=== PATIENT | female | born 2000 | race Caucasian/White ===

== ENCOUNTER 2025-04-05 10:12 | Emergency (ER) | payer OTHER, SELFPAY ==
[2025-04-05 10:19] VITALS: BP 126/84; PULSE 92; RESP 18; TEMP 36.6
[2025-04-05 10:37] LABS: BEDSIDEPREGUCG Negative (Negative)
[2025-04-05 10:38] LABS: Add Urine Microscopic? NO; Appearance Urine Clear (Clear); Glucose Urine UA Negative (Negative); Leukocyte Esterase Ur Negative LEU/UL (Negative); Nitrate Urine Negative (Negative); Specific Grav Ur 1.033 (1.001-1.035)
--- OUTSIDE RECORDS SUMMARY | 2025-04-05 10:57 | XMS_ITS | Clinical Summary ---
Author Organization [facility] Address [address] [place] [id number] Care Team Providers Care Tunnel Elastic Operator Zigzag Name Role Phone No, Physician Primary Care Provider [phone] Allergies Active Allergy Reactions Criticality Noted Date Comments Amoxicillin Unknown 02/01/2025 Penicillins Unknown 02/01/2025 Medications No known medications Active Problems Problem Noted Date Diagnosed Date Anemia 02/01/2025 Seizure 02/01/2025 Encounters Date Type Department Care Team Description 02/02/2025 Documentation [facility] Social Work [address] [place] [id number] Nicole Roque 02/01/2025 2:31 PM CDT - 02/01/2025 6:42 PM CDT Emergency [address] [address] Nicholas Andrews MD Seizure (HCC) (Primary Dx); Anemia, unspecified type Discharge Disposition: Discharge to home or self care from Last 3 Months Surgical History Surgery Date Site/Laterality Comments APPENDECTOMY Medical History Medical History Date Comments Seizures (HCC) Bipolar disorder (HCC) Social History Tobacco Use Types Packs/Day Years Used Date Smoking Tobacco: Never Passive Smoke Exposure: Never Tobacco Cessation:Counseling Given: Not Answered Alcohol Use Standard Drinks/Week Comments Not Currently 0 (1 standard drink = 0.6 oz pur e alcohol) Personal Safety Answer Date Recorded Have you ever been in or are you currently in a harmful physical or emotional relationship or is someone making you feel afraid or unsafe? Denies 02/01/2025 Comments No Sex and Gender Information Value Date Recorded Sex Assigned at Not on file Legal Sex Female 2:31 PM CDT Gender Identity Female 02/01/2025 2:44 PM CDT Sexual Orientation Not on file Obstetrics History Last Filed Vital Signs Vital Sign Reading Time Taken Comments Blood Pressure 108/73 02/01/2025 6:00 PM CDT Pulse 74 02/01/2025 6:00 PM CDT Temperature 36.9 C (98.4 F) 02/01/2025 2:32 PM CDT Respiratory Rate 16 02/01/2025 6:00 PM CDT Oxygen Saturation 100% 02/01/2025 6:00 PM CDT Inhaled Oxygen Concentration - - Weight 68 kg (150 lb) 02/01/2025 2:32 PM CDT Height 175.3 cm (5' 9) 02/01/2025 2:32 PM CDT Body Mass Index 22.15 02/01/2025 2:32 PM CDT Plan of Treatment Health Maintenance Due Date Last Done Comments Cervical Cancer Screening 2002 Depression Screening 2002 Hepatitis C Screening 2002 HPV Vaccines (1 - 3-dose series) 2017 Regular Well Visit/Exam 18-64 2020 Influenza Vaccine (#1) 2025 DTaP/Tdap/Td Vaccine (7 - Td or Tdap) 01/29/2031 01/29/2021, 04/25/2008, 02/12/2004, Additional history exists Hepatitis B Screening Completed 08/03/2003 , 05/01/2003, 2002 Pneumococcal vaccine <65 Aged Out 003, 06/01/2003, 05/01/2003 No longer eligible based on patient's age to complete this topic Varicella Vaccines Completed 01/29/2021, 01/15/2004 Meningococcal B Vaccine Completed 03/14/2021, 01/29 Procedures Procedure Name Priority Date/Time Associated Diagnosis Comments LAMOTRIGINE LEVEL STAT 02/01/2025 2:4 6 PM CDT LEVETIRACETAM LEVEL STAT 02/01/2025 2 :46 PM CDT EGFR STAT 02/01/2025 2:42 PM CDT DIFFERENTIAL AUTO STAT 02/01/2025 2:4 2 PM CDT HCG, BLOOD, QUANTITATIVE STAT 02/01/2025 2:42 PM CDT PHOSPHORUS STAT 02/01/2025 2:42 PM CDT MAGNESIUM STAT 02/01/2025 2:42 PM CDT ETHANOL STAT 02/01/2025 2:42 PM CDT COMPREHENSIVE METABOLIC PANEL STAT 02/01/2025 2:42 PM CDT CBC WITH AUTO DIFFERENTIAL STAT 02/01/2025 2:42 PM CDT ECG 12-LEAD STAT 02/01/2025 2:36 PM CDT from Last 3 Months Results * Levetiracetam level (02/01/2025 2:46 PM CDT) Pathologist [facility] Levetiracetam (Keppra) 18.3 10.0 - 40.0 mcg/mL [facility] ref Lab Comment: ADDITIONAL INFORMATION This test was developed and its performance characteristics determined by [facility] in a manner consistent with CLIA requirements. This test has not been cleared or approved by the U.S. Food and Drug Administration. Test Performed by: [facility] - [facility] [address] [place] [address] System Support Analyst: Demi Lambert Ph.D.; CLIA# [id number] Blood 02/01/2025 2:46 PM CDT 02/01/2025 2:52 PM CDT us Nicholas Andrews MD LAB BLOOD ORDERABLES Final Result [facility] [address] [facility] Department [place] [address] [facility] ref [facility] * (ABNORMAL) Lamotrigine level (02/01/2025 2:46 PM CDT) Pathologist [facility] Lamotrigine 1.8(L) 3.0 - 15.0 mcg/mL [facility] Comment: ADDITIONAL INFORMATION This test was developed and its performance characteristics determined by [facility] in a manner consistent with CLIA requirements. This test has not been cleared or approved by the U.S. Food and Drug Administration. Test Performed by: [facility] [address] [place] [address] System Support Analyst: Demi Lambert Ph.D.; CLIA# [id number] Blood 02/01/2025 2:46 PM CDT 02/01/2025 2:52 PM CDT us Nicholas Andrews MD LAB BLOOD ORDERABLES Final Result [address] Department [place] [address] [facility] ref [facility] * eGFR (02/01/2025 2:42 PM CDT) eGFR >90 >=60 mL/min/1. 73 m2 Comment: Interpretive Data Reference Interval Normal >/= 90 mL/min/1.73m2 Mildly decreased* 60 - 89 mL/min/1.73m2 Mildly to moderately decreased 45 - 59 mL/min/1.73m2 Moderately to severely decreased 30 - 44 mL/min/1.73m2 Severely decreased 15 - 29 mL/min/1.73m2 Kidney Failure < 15 mL/min/1.73m2 *Relative to young adult level Estimated glomerular filtration rate is determined by the 2020 CKD-EPI equation recommended by the National Kidney Foundation (A Unifying Approach to GFR Estimation: Recommendations of the NKF-ASK Task Force on Reassessing the Inclusion of Race in Diagnosing Kidney Disease, JASN 2020). The CKD-EPI equation should not be used for patients with unstable renal function and has not been validated in children and those over 70. Current interpretive data was last reviewed 2021. Blood 02/01/2025 2:42 PM CDT 02/01/2025 2:49 PM CDT us Nicholas Andrews MD LAB BLOOD ORDERABLES Final Result [facility] [address] [facility] Department [place] [address] * (ABNORMAL) Differential, auto (02/01/2025 2:42 PM CDT) Pathologist [facility] Neutrophil abs 5.41 1.50 - 6.50 K/cumm Imm gran abs 0.02 0.00 - 0.10 K/cumm [facility] Lymphocyte abs 0.77(L) 0.80 - 3.30 K/cumm [facility] Monocyte abs 0.55 0.20 - 0.80 K/cumm [facility] Eosinophil abs 0.03 0.00 - 0.50 K/cumm [facility] Basophil abs 0.02 0.00 - 0.10 K/cumm [facility] Neutrophil pct 79.6 % [facility] Comment: Interpretive Data Percent cell count reference ranges are not reported, since discordance with absolute values may lead to misinterpretation of CBC data. Current Interpretive Data was last revised on 2017. Imm gran pct 0.3 % [facility] Comment: Interpretive Data Percent cell count reference ranges are not reported, since discordance with absolute values may lead to misinterpretation of CBC data. Current Interpretive Data was last revised on 2017. Lymphocyte pct 11.3 % [facility] Comment: Interpretive Data Percent cell count reference ranges are not reported, since discordance with absolute values may lead to misinterpretation of CBC data. Current Interpretive Data was last revised on 2017. Monocyte pct 8.1 % [facility] Comment: Interpretive Data Percent cell count reference ranges are not reported, since discordance with absolute values may lead to misinterpretation of CBC data. Current Interpretive Data was last revised on 2017. Eosinophil pct 0.4 % [facility] Comment: Interpretive Data Percent cell count reference ranges are not reported, since discordance with absolute values may lead to misinterpretation of CBC data. Current Interpretive Data was last revised on 2017. Basophil pct 0.3 % [facility] Comment: Interpretive Data Percent cell count reference ranges are not reported, since discordance with absolute values may lead to misinterpretation of CBC data. Current Interpretive Data was last revised on 2017. Blood 02/01/2025 2:42 PM CDT 02/01/2025 2:49 PM CDT Nicholas Andrews MD LAB BLOOD ORDERABLES Final Result Performing Organization Address City/[facility]/ZIP Co de Phone Number [facility] [address] [employer] [place] [address] * (ABNORMAL) CBC with auto differential (02/01/2025 2:42 PM CDT) [facility] WBC 6.80 3.80 - 9.90 K/cumm Hgb 9.1(L) 11.9 - 15.5 g/dL [facility] Hct 28.9(L) 35.6 - 45.5 % [facility] Plt 167 150 - 400 K/cumm [facility] MPV 9.9 9.1 - 12.3 fL [facility] RBC 3.30(L) 3.90 - 5.20 M/cumm [facility] MCV 87.6 81.3 - 96.4 fL [facility] MCH 27.6 27.1 - 33.3 pg [facility] MCHC 31.5(L) 32.3 - 35.7 g/dL [facility] RDW CV 13.6 11.1 - 14.9 % [facility] RDW SD 43.8 35.7 - 48.1 fL [facility] NRBC abs 0.00 0.00 - 0.01 K/cumm [facility] Blood 02/01/2025 2:42 PM CDT 02/01/2025 2:49 PM CDT Nicholas Andrews MD LAB BLOOD ORDERABLES Final Result Performing Organization Address City/[facility]/ZIP Co de Phone Number [facility] [address] [place] [address] * hCG, blood, quantitative (02/01/2025 2:42 PM CDT) [facility] hCG, quant <5.0 0.0 - 5.0 IUnits/L Comment: Interpretive Data Male: < 5 IU/L Non- premenopausal Female: <5 IU/L [employer] hCG Beta Quant assay procedure was used. Results from different manufacturers or methods may not be comparable. Serial testing should be performed using the same method. Interpretive Data was last revised on 2023 Blood 02/01/2025 2:42 PM CDT 02/01/2025 2:49 PM CDT Nicholas Andrews MD LAB BLOOD ORDERABLES Final Result Performing Organization Address [facility] Co de Phone Number [address] [place] [address] * Phosphorus (02/01/2025 2:42 PM CDT) [facility] Phosphorus, pl 2.3 2.3 - 4.5 mg/dL Blood 02/01/2025 2:42 PM CDT 02/01/2025 2:49 PM CDT Nicholas Andrews MD LAB BLOOD ORDERABLES Final Result Performing Organization Address [facility] de Phone Number [address] [place] [address] * Magnesium (02/01/2025 2:42 PM CDT) [facility] Magnesium 1.9 1.4 - 2.5 mg/dL Blood 02/01/2025 2:42 PM CDT 02/01/2025 2:49 PM CDT Nicholas Andrews MD LAB BLOOD ORDERABLES Final Result Performing Organization Address [facility] de Phone Number [address] [place] [address] * Ethanol (02/01/2025 2:42 PM CDT) Ethanol <10 <=10 mg/dL Comment: Interpretive Data Legal limit of intoxication > or = 80 mg/dL Levels > or = 400 mg/dL are potentially TOXIC. Current interpretive data was last revised on 2018. Blood 02/01/2025 2:42 PM CDT 02/01/2025 2:49 PM CDT Nicholas Andrews MD LAB BLOOD ORDERABLES Final Result [facility] [address] [facility] Department [place] [address] * Comprehensive metabolic panel (02/01/2025 2:42 PM CDT) Sodium 140 135 - 145 mmol/L Potassium, pl 4.4 3.3 - 4.9 mmol/L [facility] Comment:Hemolyzed; Potassium value may be falsely elevated by as much as 1.0 mmol/L. Suggest redraw and reanalysis. Chloride 106 97 - 110 mmol/L [facility] CO2 22 22 - 32 mmol/L [facility] Anion gap 12 2 - 15 mmol/L [facility] BUN 15 6 - 25 mg/dL [facility] Creatinine 0.73 0.60 - 1.10 mg/dL [facility] Glucose 97 70 - 199 mg/dL [facility] Comment: Interpretive Data Fasting glucose >/= 126 mg/dl is diagnostic for diabetes. Fasting is defined as no caloric intake for at least 8 hours. Fasting glucose between 100 mg/dl to 125 mg/dl is diagnostic of prediabetes. In a patient with classic symptoms of hyperglycemia or hyperglycemic crisis, a random glucose >/= 200 mg/dl is diagnostic for diabetes. In the absence of unequivocal hyperglycemia, results should be confirmed by repeat testing. The classification and Diagnosis of Diabetes Diabetes Care 2022; 46: S19-S40. Current interpretive data was last revised 2022. Calcium 8.8 8.5 - 10.3 mg/dL [facility] Bilirubin, total <0.2 0.1 - 1.2 mg/dL [facility] Protein, pl 6.5 6.5 - 8.5 g/dL [facility] Albumin 4.0 3.5 - 5.0 g/dL [facility] Alk phos 54 40 - 130 Units/L [facility] ALT 17 7 - 45 Units/L [facility] AST 25 10 - 45 Units/L [facility] Blood 02/01/2025 2:42 PM CDT 02/01/2025 2:49 PM CDT Nicholas Andrews MD LAB BLOOD ORDERABLES Final Result [facility] [address] [facility] Department [place] [address] * ECG 12 lead (02/01/2025 2:36 PM CDT) Pathologist [facility] Ventricular Rate EKG/Min 84 BPM [facility] Atrial Rate 84 BPM [facility] CA-Interval (MSEC) 124 ms [facility] QRS-Interval (MSEC) 90 ms [facility] QT-Interval (MSEC) 376 ms [facility] QTc 444 ms [facility] P [place] 42 degrees [facility] R [place] 82 degrees [facility] T [place] 52 degrees [facility] Diagnosis Normal sinus rhythm RSR' or QR pattern in V1 suggests right ventricular conduction delay No previous ECGs available Confirmed by SULTAN ALCANTARA M.D. ([id number]) on 02/01/2025 10:24:45 PM [facility] 02/01/2025 2:36 PM CDT 02/01/2025 10:24 PM CDT us Nicholas Andrews MD ECG ORDERABLES Final Resu lt [facility] from Last 3 Months Insurance [employer] [facility] Care Teams Tunnel Elastic Operator Zigzag Relationship Specialty Start Date End Date No, Physician PCP - General 02/01/25
--- OUTSIDE RECORDS SUMMARY | 2025-04-05 10:57 | XMS_ITS | Referral Summary ---
Author Organization [facility] Address [address] [place] [address] Care Team Providers Care Nut Sorter Operator Name Role Phone No, Physician Primary Care Provider [phone] Encounters Date Type Department Care Team Description 02/02/[address] [facility] Social Work [address] [place] [id number] Nicole Roque 02/01/2025 2:31 PM CDT - 02/01/2025 6:42 PM CDT Emergency [address] [address] Nicholas Andrews MD Seizure (HCC) (Primary Dx); Anemia, unspecified type Discharge Disposition: Discharge to home or self care from Last 3 Months Allergies Active Allergy Reactions Criticality Noted Date Comments Amoxicillin Unknown 02/01/2025 Penicillins Unknown 02/01/2025 Medications No known medications Active Problems Problem Noted Date Diagnosed Date Anemia 02/01/2025 Seizure 02/01/2025 Social History Tobacco Use Types Packs/Day Years [...] PM CDT Sexual Orientation Not on file Last Filed Vital Signs Vital Sign Reading [...] 02/01/2025 2:32 PM CDT Plan of Treatment Not on file Procedures Procedure Name Priority Date/Time Associated Diagnosis [...] * Levetiracetam level (02/01/2025 2:46 PM CDT) Levetiracetam (Keppra) 18.3 10.0 - 40.0 mcg/mL [facility] Comment: ADDITIONAL INFORMATION This test was developed and its performance characteristics determined by [facility] in a manner consistent with CLIA requirements. This test has not been cleared or approved by the U.S. Food and Drug Administration. Test Performed by: [facility] [place] [address] Cut Out Stitcher: Demi Lambert Ph.D.; CLIA# [id number] Blood 02/01/2025 2:46 PM CDT 02/01/2025 2:52 PM CDT Nicholas Andrews MD LAB BLOOD ORDERABLES Final Result Performing Organization Address [facility] de Phone Number [address] [place] [address] [facility] * (ABNORMAL) Lamotrigine level (02/01/2025 2:46 PM CDT) Lamotrigine 1.8(L) 3.0 - 15.0 mcg/mL [facility] Comment: ADDITIONAL INFORMATION This test was developed and its performance characteristics determined by [facility] in a manner consistent with CLIA requirements. This test has not been cleared or approved by the U.S. Food and Drug Administration. Test Performed by: [facility] - [address] [address] Cut Out Stitcher: Demi Lambert Ph.D.; CLIA# [id number] Blood 02/01/2025 2:46 PM CDT 02/01/2025 2:52 PM CDT Nicholas Andrews MD LAB BLOOD ORDERABLES Final Result Performing Organization Address [facility] de Phone Number [address]IR[address] [place] [address] [facility] * eGFR (02/01/2025 2:42 PM CDT) [facility] eGFR >90 >=60 mL/min/1. 73 m2 Comment: [...] Andrews MD LAB BLOOD ORDERABLES Final Result [facility] [address] [facility] Department [place] [address] * (ABNORMAL) Differential, auto (02/01/2025 2:42 PM CDT) [facility] Neutrophil abs 5.41 1.50 - 6.50 K/cumm Imm gran abs 0.02 0.00 - 0.10 K/cumm [facility] Lymphocyte abs 0.77(L) 0.80 - 3.30 K/cumm [facility] Monocyte abs 0.55 0.20 - 0.80 K/cumm [facility] Eosinophil abs 0.03 0.00 - 0.50 K/cumm [facility] Basophil abs 0.02 0.00 - 0.10 K/cumm [facility] Neutrophil pct 79.6 % [facility] Comment: Interpretive Data Percent cell count reference ranges are not reported, since discordance with absolute values may lead to misinterpretation of CBC data. Current Interpretive Data was last revised on 2017. Imm gran pct 0.3 % [facility] Comment: Interpretive Data Percent cell count reference ranges are not reported, since discordance with absolute values may lead to misinterpretation of CBC data. Current Interpretive Data was last revised on 2017. Lymphocyte pct 11.3 % [facility] Comment: Interpretive Data Percent cell count reference ranges are not reported, since discordance with absolute values may lead to misinterpretation of CBC data. Current Interpretive Data was last revised on 2017. Monocyte pct 8.1 % [facility] Comment: Interpretive Data Percent cell count reference ranges are not reported, since discordance with absolute values may lead to misinterpretation of CBC data. Current Interpretive Data was last revised on 2017. Eosinophil pct 0.4 % [facility] Comment: Interpretive Data Percent cell count reference ranges are not reported, since discordance with absolute values may lead to misinterpretation of CBC data. Current Interpretive Data was last revised on 2017. Basophil pct 0.3 % [facility] Comment: Interpretive Data Percent cell count reference ranges are not reported, since discordance with absolute values may lead to misinterpretation of CBC data. Current Interpretive Data was last revised on 2017. Blood 02/01/2025 2:42 PM CDT 02/01/2025 2:49 PM CDT us Nicholas Andrews MD LAB BLOOD ORDERABLES Final Result [facility] [address] [facility] Department of Laboratories [place], [place] [id number] * (ABNORMAL) CBC with auto differential (02/01/2025 2:42 PM CDT) Pathologist [facility] WBC 6.80 3.80 - 9.90 K/cumm Hgb 9.1(L) 11.9 - 15.5 g/dL [facility] Hct 28.9(L) 35.6 - 45.5 % [facility] Plt 167 150 - 400 K/cumm [facility] MPV 9.9 9.1 - 12.3 fL [facility] RBC 3.30(L) 3.90 - 5.20 M/cumm [facility] MCV 87.6 81.3 - 96.4 fL [facility] MCH 27.6 27.1 - 33.3 pg [facility] MCHC 31.5(L) 32.3 - 35.7 g/dL [facility] RDW CV 13.6 11.1 - 14.9 % [facility] RDW SD 43.8 35.7 - 48.1 fL [facility] NRBC abs 0.00 0.00 - 0.01 K/cumm [facility] Blood 02/01/2025 2:42 PM CDT 02/01/2025 2:49 PM CDT Nicholas Andrews MD LAB BLOOD ORDERABLES Final Result Performing Organization Address [facility] de Phone Number [address] [place] [address] * hCG, blood, quantitative (02/01/2025 2:42 PM CDT) Pathologist [facility] hCG, quant <5.0 0.0 - 5.0 [...] BLOOD ORDERABLES Final Result Performing Organization Address [facility] Co de Phone Number [address] [place], [place] [id number] * Phosphorus (02/01/2025 2:42 PM CDT) Pathologist [facility] Phosphorus, pl 2.3 2.3 - 4.5 mg/dL Blood 02/01/2025 2:42 PM CDT 02/01/2025 2:49 PM CDT Nicholas Andrews MD LAB BLOOD ORDERABLES Final Result Performing Organization Address [facility] Co de Phone Number KEIR[address] [place] [address] * Magnesium (02/01/2025 2:42 PM CDT) Magnesium 1.9 1.4 - 2.5 mg/dL Blood 02/01/2025 2:42 PM CDT 02/01/2025 2:49 PM CDT Nicholas Andrews MD LAB BLOOD ORDERABLES Final Result Performing Organization Address [facility] de Phone Number [address] [address] * Ethanol (02/01/2025 2:42 PM CDT) Pathologist [facility] Ethanol <10 <=10 mg/dL Comment: Interpretive Data Legal limit of intoxication > or = 80 mg/dL Levels > or = 400 mg/dL are potentially TOXIC. Current interpretive data was last revised on 2018. Blood 02/01/2025 2:42 PM CDT 02/01/2025 2:49 PM CDT Nicholas Andrews MD LAB BLOOD ORDERABLES Final Result Performing Organization Address [facility] de Phone Number [address] [place] [address] * Comprehensive metabolic panel (02/01/2025 2:42 PM CDT) Sodium 140 135 - 145 mmol/L Potassium, pl 4.4 3.3 - 4.9 mmol/L [facility] Comment:Hemolyzed; Potassium value may be falsely elevated by as much as 1.0 mmol/L. Suggest redraw and reanalysis. Chloride 106 97 - 110 mmol/L [facility] CO2 22 22 - 32 mmol/L [facility] Anion gap 12 2 - 15 mmol/L [facility] BUN 15 6 - 25 mg/dL [facility] Creatinine 0.73 0.60 - 1.10 mg/dL [facility] Glucose 97 70 - 199 mg/dL [facility] Comment: Interpretive Data Fasting glucose >/= 126 [...] classification and Diagnosis of Diabetes Diabetes Care 202; 46: S19-S40. Current interpretive data was last revised 2022. Calcium 8.8 8.5 - 10.3 mg/dL [facility] Bilirubin, total <0.2 0.1 - 1.2 mg/dL [facility] Protein, pl 6.5 6.5 - 8.5 g/dL [facility] Albumin 4.0 3.5 - 5.0 g/dL [facility] Alk phos 54 40 - 130 Units/L [facility] ALT 17 7 - 45 Units/L [facility] AST 25 10 - 45 Units/L [facility] Blood 02/01/2025 2:42 PM CDT 02/01/2025 2:49 PM CDT Nicholas Andrews MD LAB BLOOD ORDERABLES Final Result [facility] [address] [facility] Department [place] [address] * ECG 12 lead (02/01/2025 2:36 PM CDT) Ventricular Rate EKG/Min 84 BPM [facility] Atrial Rate [address] [facility] [place]-Interval (MSEC) [address] [facility] QRS-Interval (MSEC) [address] [facility] QT-Interval (MSEC) 376 ms [facility] QTc 444 ms [facility] P [place] 42 degrees [facility] R [place] 82 degrees [facility] T [place] 52 degrees [facility] Diagnosis Normal sinus rhythm RSR' or QR pattern in V1 suggests right ventricular conduction delay No previous ECGs available Confirmed by SULTAN ALCANTARA M.D. ([id number]) on 02/01/2025 10:24:45 PM [facility] 02/01/2025 2:36 PM CDT 02/01/2025 10:24 PM CDT us Nicholas Andrews MD ECG ORDERABLES Final Resu lt [facility] [place] from Last 3 Months Insurance [employer] [facility] Care Teams Nut Sorter Operator Relationship Specialty Start Date End Date No, Physician PCP - General 02/01/25
[2025-04-05 10:58] LABS: Cannabinoid Screen Urine Negative (Negative)
--- NOTE | 2025-04-05 11:40 | ED_ITS ---
HPI - General Adult General Chief complaint: Unspecified Stated complaint: parasitic infection Time Seen by Provider: 04/05/25 10:27 Source: patient Mode of arrival: ambulatory Limitations: no limitations History of Present Illness HPI narrative: Patient is a 24-year-old female, with PMH of anxiety, who presents to the ED with concern for parasites in her urine. Patient reports she is currently residing at [facility]. She reports there was a boil order at [facility] last week and patient accidentally brushed her teeth and swallowed a small amount of water. She reports the last 2 days, she has noticed small flecks of black in her urine. She believes she has a parasite. She denies dysuria or hematuria. Denies abdominal pain nausea, vomiting, fevers. Patient denies seeing parasites anywhere else or seen/hearing anything that others are not. Related Data Allergies Allergy/AdvReac Type Severity Reaction Status Date / Time Penicillins Allergy Intermediate Hives Verified 04/05/25 10:22 promethazine (From Phenergan) Allergy Intermediate Hives Verified 04/05/25 10:22 Review of Systems Review of Systems: All systems reviewed & are unremarkable except as noted in HPI. All systems reviewed & are unremarkable except as noted in HPI and below Exam Narrative: GENERAL: Well appearing, well-nourished, non-toxic, in no acute distress. HEAD: Normocephalic, atraumatic. RESPIRATORY: Airway patent, respirations nonlabored. Clear to auscultation bilaterally, no rales, rhonchi, wheezing. CARDIOVASCULAR: Regular rate and rhythm ABDOMINAL: Soft, nontender, nondistended. Normoactive BS. MUSCULOSKELETAL: Moves all extremities. No gross deformities. SKIN: Warm, dry, normal color. NEURO: A&O X3. Speech clear. PSYCHIATRIC: Appropriate mood and affect. Normal interaction. Course Vital Signs Vital signs: Vital Signs Temperature 98 F 04/05/25 10:19 Pulse Rate 92 04/05/25 10:19 Respiratory Rate 18 04/05/25 10:19 Blood Pressure 126/84 04/05/25 10:19 Oxygen Delivery Room Air 04/05/25 10:19 Temperature 98 F 04/05/25 10:19 Pulse Rate 80 04/05/25 11:53 Respiratory Rate 16 04/05/25 11:53 Blood Pressure 121/72 04/05/25 11:53 Pulse Oximetry 98 04/05/25 11:53 Oxygen Delivery Room Air 04/05/25 10:19 Medical Decision Making MDM Narrative Medical decision making narrative: UA here is clear. Urine is negative. Urine drug screen is negative. Provided patient with reassurance against parasitic infection. She is otherwise very much stable, no evidence of hemodynamic instability. No systemic signs of infection. Feel she is safe for discharge home. Patient is on medication for epilepsy and anxiety. She reports she was previously on Abilify, but is no longer on this medication. She does not currently have a primary care doctor or psychiatrist in the area. Will refer. There is no evidence of acute psychosis at this time. Patient feels comfortable going home. Given return precautions. Discharged in stable condition. Medical Records Medical records reviewed: Yes I reviewed the external patient's medical records. Vital Signs Vital Signs: Vital Signs Temperature 98 F 04/05/25 10:19 Pulse Rate 92 04/05/25 10:19 Respiratory Rate 18 04/05/25 10:19 Blood Pressure 126/84 04/05/25 10:19 Oxygen Delivery Room Air 04/05/25 10:19 Temperature 98 F 04/05/25 10:19 Pulse Rate 80 04/05/25 11:53 Respiratory Rate 16 04/05/25 11:53 Blood Pressure 121/72 04/05/25 11:53 Pulse Oximetry 98 04/05/25 11:53 Oxygen Delivery Room Air 04/05/25 10:19 Lab Data Lab results reviewed: Yes I reviewed the patient's lab results. Labs: Lab Results 04/05/25 04/05/25 Range/Units 10:29 10:35 Urine Color Yellow (Yellow) Urine Appearance Clear (Clear) Urine pH 6.0 (5.0-9.0) Ur Specific [place] 1.033 (1.001-1.035) Urine Protein Negative (Negative) mg/dL Urine Glucose (UA) Negative (Negative) mg/dL Urine Ketones Trace H (Negative) mg/dL Ur Blood (Man) Negative (Negative) Urine Nitrate Negative (Negative) Urine Bilirubin Negative (Negative) Urine Urobilinogen 1.0 (<2.0) mg/dL Leukocyte Esterase Rfl Negative (Negative) DENNY/UL POC Urine HCG, Qual Negative (Negative) Urine Opiates Screen Negative (Negative) Urine Methadone Screen Negative (Negative) Ur Barbiturates Screen Negative (Negative) Ur Phencyclidine Scrn Negative (Negative) Ur Amphetamine Screen Negative (Negative) U Benzodiazepines Scrn Negative (Negative) Urine Cocaine Screen Negative (Negative) U Cannabinoids Screen Negative (Negative) Discharge Plan Discharge Clinical Impression: Abnormal urination Patient Disposition: Home Condition: Stable Instructions: Antibiotic Form Additional Instructions: Your urine sample here was clear of any signs of infection. Continue to monitor symptoms. Recommend follow-up with primary care doctor for further evaluation. Return to the ED if you experience severe abdominal pain, persistent fevers, unable to keep down food or drink, blood in your urine or stool, or any other symptoms of concern. Patient Language: Georgian Follow-up/Referrals: Lauren Savage MD [Physician] - (PRIMARY CARE) Paras Travis MD [Physician] - (PSYCHIATRY) PHYSICIAN NOT ON STAFF,NONSTAFF [Primary Care Provider] - Time of Disposition: 11:46
[2025-04-05 11:53] VITALS: BP 121/72; PULSE 80; RESP 16; O2SAT 98
== END 2025-04-05 11:56 | disposition home or self-care (01) ==
PROVIDERS: Emergency Medicine; Emergency Provider Physician Assistant
DX: R82.90 Unspecified abnormal findings in urine (principal); G40.909 Epilepsy, unspecified, not intractable, without status epilepticus; F41.9 Anxiety disorder, unspecified
CPT/HCPCS: 80307; 81003; 81025; 99283